=== PATIENT | male | born 1985 | race Caucasian/White ===

== ENCOUNTER 2018-04-03 03:23 | Emergency (ER) | payer SELFPAY ==
[~2018-04-03] VITALS: Ht 180.3 cm; Wt 64.2 kg
[2018-04-03] MEDS ORDERED: KETOROLAC 30 MG/1 ML ONE (04:00)
[2018-04-03] MEDS ORDERED: CEFTRIAXONE 1,000 MG IM ONE (04:00)
[2018-04-03] MEDS ORDERED: KETOROLAC 30 MG/1 ML IM ONE (04:00)
[2018-04-03] MEDS ORDERED: AZITHROMYCIN 500 MG TABLET ONE (04:08)
[2018-04-03] MEDS ORDERED: CEFTRIAXONE 250 MG ONE (04:08)
[2018-04-03] MEDS ORDERED: LIDOCAINE-MPF 1%, 2ML ONE (04:09)
[2018-04-03 04:15] LABS: CULTURE INDICATED? YES; MICROSCOPIC INDICATED
[2018-04-03 04:21] LABS: BASOPHILS % (AUTO) 1 % (0-1); EOSINOPHILS # (AUTO) 0.88 x10^3/uL (0-0.4); EOSINOPHILS % (AUTO) 9 % (1-7); LYMPHOCYTES # (AUTO) 3.48 x10^3/uL (1-3.4); LYMPHOCYTES % (AUTO) 35 % (22-44); MD NO; MEAN CORPUSCULAR HEMOGLOBIN 29.9 pg (27.5-34.5); MEAN CORPUSCULAR HGB CONC 34.5 g/dL (33.2-36.2); MEAN CORPUSCULAR VOLUME 86.7 fL (81-97); MEAN PLATELET VOLUME 7.6 fL (7.4-10.4); MONOCYTES # (AUTO) 0.81 x10^3/uL (0.2-0.8); MONOCYTES % (AUTO) 8 % (2-9); NEUTROPHILS # (AUTO) 4.74 x10^3/uL (1.8-6.8); NEUTROPHILS % (AUTO) 47 % (42-75); PLATELET COUNT 304 x10^3/uL (130-400); RED BLOOD COUNT 4.93 x10^6/uL (4.38-5.82); RED CELL DISTRIBUTION WIDTH 13.6 % (9.4-14.8)
[2018-04-03 04:33] LABS: ALBUMIN 3.6 g/dL (3.4-5.0); ANION GAP 5 mmol/L (5-15); CHLORIDE 105 mmol/L (98-107)
[2018-04-03 04:35] LABS: CREATININE 1.08 mg/dL (0.7-1.3)
[2018-04-03 05:07] VITALS: BP 116/78
[2018-04-03] MEDS ORDERED: AZITHROMYCIN 500 MG TABLET PO SCH (09:00)
== END 2018-04-03 05:15 | disposition home or self-care (01) ==
LOC: ED 04:13
DX: N30.90 Cystitis, unspecified without hematuria (principal); A54.09 Other gonococcal infection of lower genitourinary tract; N48.1 Balanitis; B96.89 Other specified bacterial agents as the cause of diseases classified elsewhere; F17.210 Nicotine dependence, cigarettes, uncomplicated; G89.29 Other chronic pain; Z88.0 Allergy status to penicillin
CPT/HCPCS: 36415; 74176; 80048; 81001; 82040; 85025; 87086; 87491; 87591; 96372; 99285; J0696

== ENCOUNTER 2018-05-03 05:29 | Emergency (ER) | payer MEDICAID ==
[~2018-05-03] VITALS: Ht 180.3 cm; Wt 62.6 kg
[2018-05-03 05:32] VITALS: BP 126/88
[2018-05-03] MEDS ORDERED: KETOROLAC 30 MG/1 ML IVPush ONE (06:00)
[2018-05-03] MEDS ORDERED: SODIUM CHLORIDE FLUSH 10ML SYR IVF ONE (06:00)
[2018-05-03] MEDS ORDERED: KETOROLAC 30 MG/1 ML ONE (06:02)
[2018-05-03 06:12] LABS: MEAN CORPUSCULAR HEMOGLOBIN 29.2 pg (27.5-34.5); MEAN CORPUSCULAR HGB CONC 33.7 g/dL (33.2-36.2); MEAN CORPUSCULAR VOLUME 86.4 fL (81-97); MEAN PLATELET VOLUME 7.6 fL (7.4-10.4); PLATELET COUNT 236 x10^3/uL (130-400); RED BLOOD COUNT 5.08 x10^6/uL (4.38-5.82); RED CELL DISTRIBUTION WIDTH 14.3 % (9.4-14.8)
[2018-05-03 06:14] LABS: MICROSCOPIC NOT IND
[2018-05-03 06:16] LABS: CULTURE INDICATED? NO
[2018-05-03 06:27] LABS: ALBUMIN 3.5 g/dL (3.4-5.0); ANION GAP 5 mmol/L (5-15); CALCIUM 8.9 mg/dL (8.5-10.1); CHLORIDE 110 mmol/L (98-107)
[2018-05-03 06:33] LABS: ALANINE AMINOTRANSFERASE 393 U/L (12-78); ALKALINE PHOSPHATASE 100 U/L (45-117); BILIRUBIN,TOTAL 0.5 mg/dL (0.2-1.0); CREATININE 0.96 mg/dL (0.7-1.3); TOTAL PROTEIN 7.7 g/dL (6.4-8.2)
[2018-05-03 06:42] LABS: MD YES
[2018-05-03 06:47] LABS: BAND#(MANUAL) 0.21 x10^3/uL; BANDS%(MANUAL) 2 % (0-7); EOS#(MANUAL) 0.94 x10^3/uL (0.0-0.4); EOS% (MANUAL) 9 % (1-7); LYMPH#(MANUAL) 5.82 x10^3/uL (1-3.4); LYMPHS% (MANUAL) 56 % (22-44); MONOS#(MANUAL) 0.31 x10^3/uL (0.3-2.7); MONOS% (MANUAL) 3 % (2-9); REACTIVE LYMPHS # (MANUAL) 0.83 x10^3/uL (0-0); REACTIVE LYMPHS % (MANUAL) 8 % (0-0); SEG#(MANUAL) 2.29 x10^3/uL (1.8-6.8); SEGS% (MANUAL) 22 % (42-75)
[2018-05-03 06:49] LABS: <PLATELET ESTIMATE> ADEQUATE; <PLT MORPHOLOGY> NORMAL PLT MORPH
== END 2018-05-03 08:06 | disposition left against medical advice (07) ==
LOC: ED 08:00
DX: N23 Unspecified renal colic (principal); R68.89 Other general symptoms and signs; F17.210 Nicotine dependence, cigarettes, uncomplicated
CPT/HCPCS: 36415; 74176; 80053; 81003; 83690; 85025; 96374; 99285; J1885

== ENCOUNTER 2018-06-26 07:51 | Emergency (ER) | payer MEDICAID ==
[~2018-06-26] VITALS: Ht 180.3 cm; Wt 63.0 kg
[2018-06-26 08:01] VITALS: BP 119/79
== END 2018-06-26 08:47 | disposition left against medical advice (07) ==
LOC: ED 08:40
DX: M25.571 Pain in right ankle and joints of right foot (principal)
CPT/HCPCS: 36415; 84550; 99285